=== PATIENT | male | born 1950 | race Caucasian/White ===

== ENCOUNTER → 2019-02-04 19:05 | Outpatient (REF) | payer MEDICARE, OTHER, SELFPAY ==
[2019-02-04 19:25] LABS: Add Manual Diff / Slide Review NO; Alanine Aminotransferase 34 IU/L (21-72); Albumin 4.2 g/dL (3.5-5.0); Albumin Globulin Ratio 1.5 (1.0-2.8); Alkaline Phosphatase 87 U/L (38-126); Aspartate Aminotransferase 21 IU/L (17-59); BUN Creatinine Ratio 17.8 (6-22); Basophils Absolute Auto 100 /uL (0-100); Basophils Percent Auto 0.7 % (0-2); Bilirubin Total 1.2 mg/dL (0.2-1.3); Blood Urea Nitrogen 16 mg/dL (9-20); Carbon Dioxide 28 mmol/L (22-32); Chloride 101 mmol/L (98-107); Cholesterol 156 mg/dL (140-199); Eosinophils Absolute Auto 200 /uL (0-450); Eosinophils Percent Auto 2.7 % (2-4); Estimated Glomerular Filt Rate > 60.0 mL/min (>60); Globulin 2.8 g/dL (1.7-4.1); Glucose 101 mg/dL (80-110); HDL Cholesterol 40 mg/dL (40-60); HEMOLYSIS < 15 (0-50); Hematocrit 39.5 % (41-53); Hemoglobin 12.5 g/dL (13.5-17.5); LDL Cholesterol Calculated 91 mg/dL (<100); Lymphocytes Absolute Auto 1400 /uL (1100-4500); Lymphocytes Percent Auto 17.4 % (25-40); Mean Corpuscular HGB Conc 31.5 % (30-36); Mean Corpuscular Volume 66.7 fL (80-100); Monocytes Absolute Auto 600 /uL (0-900); Monocytes Percent Auto 7.9 % (3-14); Neutrophils Absolute Auto 5700 /uL (1500-7000); Neutrophils Percent Auto 71.3 % (50-75); Platelet Count 171 X10^3/uL (150-400); Red Blood Cell Count 5.92 X10^6/uL (4.5-5.9); Red Cell Distribution Width 16.7 % (11.6-14.8); Sodium 138 mmol/L (137-145); Triglycerides 125 mg/dL (35-150)
[2019-02-04 19:56] LABS: Prostate Specific Antigen 1.84 ng/mL (0.10-4.00)
[2019-02-04 20:21] LABS: Microcytosis 2+; Target Cells 1+
== END ==
LOC: LAB 19:05
PROVIDERS: Family Provider Family Medicine Geriatric Medicine; PCP Family Medicine Geriatric Medicine; Visit Provider Family Medicine Geriatric Medicine
DX: I10 Essential (primary) hypertension (principal); Z13.220 Encounter for screening for lipoid disorders; Z00.00 Encounter for general adult medical examination without abnormal findings; Z12.5 Encounter for screening for malignant neoplasm of prostate
CPT/HCPCS: 36415; 80053; 80061; 84153; 85025; 86900; 86901

== ENCOUNTER → 2019-03-18 12:41 | Outpatient (CLI) | payer MEDICARE, OTHER, SELFPAY ==
[2019-03-18 14:44] LABS: BUN Creatinine Ratio 21.1 (6-22); Blood Urea Nitrogen 19 mg/dL (9-20); Calcium 9.4 mg/dL (8.4-10.2); Carbon Dioxide 26 mmol/L (22-32); Chloride 100 mmol/L (98-107); Estimated Glomerular Filt Rate > 60.0 mL/min (>60); Glucose 86 mg/dL (80-110); HEMOLYSIS < 15 (0-50); Potassium 4.3 mmol/L (3.4-5.1); Sodium 137 mmol/L (137-145)
== END ==
PROVIDERS: Family Provider Family Medicine Geriatric Medicine; PCP Family Medicine Geriatric Medicine; Visit Provider Surgery
DX: K61.39 Other ischiorectal abscess (principal)
CPT/HCPCS: 36415; 80048

== ENCOUNTER → 2019-03-28 12:25 | Outpatient (CLI) | payer MEDICARE, OTHER, SELFPAY ==
--- NOTE | 2019-03-28 12:28 | DI.MRI.S_ITS ---
PROCEDURE: MR PELIS WO/W CON INDICATIONS: Suspected ischiorectal abscess TECHNIQUE: Coronal HASTE, sagittal T2 FSE, axial T1 FSE, axial and coronal nonbreath-hold T2 FSE. Axial dynamic VIBE during administration of contrast. Post-contrast axial and coronal VIBE/2-D FLASH with fat saturation from the iliac crests to the symphysis. Optional diffusion weighted imaging and ADC may be performed. COMPARISON: None available. FINDINGS: Image quality: Excellent. Bowel and peritoneum: No pathologic free pelvic fluid. Inferior colon and small bowel loops are normal in caliber. There is colonic diverticulosis without acute diverticulitis. Genitourinary system: Bladder wall is normal in thickness. There is mild nonspecific heterogeneous enlargement of the prostate. Distal ureters are non distended. Nodes and vessels: No pathologic pelvic or inguinal adenopathy by size criteria. Iliac vessels are normal in caliber. Soft tissues: There is a peripherally enhancing loculated left perianal fluid collection within the ischiorectal fat and system with an abscess measuring up to 5.5 x 2.8 x 3.8 cm. There is an associated curvilinear sinus tract extending proximally and medially with probable intersphincteric extension with suspected perianal fistula at approximately the 1:00 position of the internal sphincter. No discrete intersphincteric fluid collection. Bones: Marrow is normal in overall signal. There is mild facet arthropathy in the lower lumbar spine. IMPRESSION: 1. 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 Dictated by: Ankit Holley M.D. on 03/28/2019 at 17:18 Approved by: Ankit Holley M.D. on 03/28/2019 at 17:26
== END ==
PROVIDERS: Family Provider Family Medicine Geriatric Medicine; PCP Family Medicine Geriatric Medicine; Visit Provider Surgery
DX: K61.39 Other ischiorectal abscess (principal)
CPT/HCPCS: 72197; A9579

== ENCOUNTER 2019-04-16 12:03 | Day surgery (SDC) | payer MEDICARE, OTHER, SELFPAY ==
[2019-04-08 12:25] VITALS: BMI 27.1
[2019-04-16] VITALS (9 sets, daily range): BP systolic 105–143; BP diastolic 57–81; PULSE 51–66; RESP 8–19; TEMP 36.8; O2SAT 96–98; BMI 27.1
[2019-04-16] MEDS: LACTATED RINGERS 1,000 ML 42 ML IV (12:48)
[2019-04-16] MEDS: CEFTRIAXONE 2 GM/50 ML FROZ.PIGGY IV (13:40)
[2019-04-16] MEDS: metroNIDAZOLE 500 MG/100 ML PIGGYBACK 100 MG IV (13:50)
[2019-04-16] MEDS: BUPIVACAINE 0.25% W/ EPI 30 ML VIAL INJ (14:15)
[2019-04-16] MEDS: LIDOCAINE JELLY 2% 30 ML TOP (14:43)
--- NOTE | 2019-04-16 14:59 | SUR.PHASEI ---
Coughing, clearing throat, not responsive to voice. Surgeon checked on patient. Rssp unlabored, skin warm and dry.
--- NOTE | 2019-04-16 15:11 | P.OP_ITS ---
Operative Date/Time/Diagnoses Date of procedure: 04/16/19 Time of procedure: 14:58 Pre-op diagnosis: Ischiorectal abscess on the Left side Post-op diagnosis: other (1. Left ischial rectal abscess 2. 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 Moderately large left Ischiorectal abscess 2. 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 Grade 3 left lateral hemorrhoid Closure Type: non-primary Specimen(s): other (Culture swabs obtained) Estimated Blood Loss (mL): 5 Procedure in detail: Patient was brought to the operating room, he was intubated without incident, he was placed in prone yenny-knife position he was prepped and draped in the usual sterile fashion time-out was completed. An initial a digital rectal exam was performed which did not identify any anal canal or anal margin masses. There was significant fullness in the left ischiorectal fossa consistent with known abscess cavity. A a length of gauze was placed into the anal canal and slowly withdrawn. There was mild prolapse of the left lateral hemorrhoidal column. A Mann retractor was placed inside the anus and the abscess cavity was compressed forcefully no purulent material was seen to drain from anywhere within the canal -however with moving the abscess cavity there was a small punctate area of anal derm that was pitted -that moved with one-to-one motion with manipulation and traction on the abscess cavity. I was highly suspicious that this constituted a fistulous tract with some degree of maturation. A large diameter lacrimal duct probe #4 was used to gently probe the area. The large d iameter was utilized so as to not create a false tract. This popped into a tract with minimal effort past easily laterally towards the abscess cavity. At this point the intersphincteric groove was clearly identified and just lateral to this the external anal sphincter muscles. Overlying the fluctuance of the underlying abscess of the left anterior aspect of the anoderm and just lateral to the external anal sphincter muscles a 2 cm curvilinear circum anal incision was carried through the dermis into the subcutaneous tissue until the abscess cavity was encountered. There was a small cox of light purulence material. The abscess cavity was very minimally entered. A angio catheter was introduced into the abscess cavity and hydrogen peroxide was injected. This gave a distinct bubbling inside the anal canal at the site of the lacrimal duct probe. Bubbles were seen at no other areas. The incision was enlarged to widely drain the abscess cavity and a small ellipse of skin was taken. Cultures were obtained in the cavity was washed out copiously hemostasis and the skin was obtain. Given the size of the cavity and the presence of the fistula in ANO I made the decision to place a draining seton. This was further informed by the patient's mild incontinence. I noted that the fistulous track was just distal to the dentate line and that involved a bit more than a 3rd of the exter nal sphincter. At this point a right angle clamp was used to grasp the tip of the lacrimal duct probe and directed it through the fistula into the anal canal was used to grasp a vessel loop which was brought through the fistulous tract and out through the drainage opening. It was secured to itself loosely with a total of 3 0 -silk ties. The perirectal block was performed with 30 mL of 0.25% bupivacaine. Lidocaine jelly was applied to the anus. Patient was extubated read to PACU without incident Complications: none Condition: stable Disposition: PACU Plan for aftercare: home
[2019-04-16] MEDS: HYDROCODONE/ACET 5/325 TABLET 1 TAB PO (15:17)
[2019-04-16] MEDS: ONDANSETRON 4 MG/2 ML INJ IV (15:38)
== END 2019-04-16 16:49 | disposition home or self-care (01) ==
PROVIDERS: PCP Family Medicine Geriatric Medicine; Visit Provider Surgery
PROC: (CPT 46040; principal; 2019-04-16 13:15)
DX: K61.39 Other ischiorectal abscess (principal); K64.2 Third degree hemorrhoids; I25.10 Atherosclerotic heart disease of native coronary artery without angina pectoris; I25.2 Old myocardial infarction
CPT/HCPCS: 46020; 87070; 87075; 87077; 87186; 87205; J0330; J0696; J1100; J2405; J2704; J3010

== ENCOUNTER 2019-07-16 13:04 | Day surgery (SDC) | payer MEDICARE, OTHER, SELFPAY ==
[2019-07-10 08:40] VITALS: BMI 27.1
[2019-07-16] VITALS (12 sets, daily range): BP systolic 109–199; BP diastolic 59–88; PULSE 56–72; RESP 8–20; TEMP 36.2–36.4; O2SAT 64–98; BMI 26.9
[2019-07-16] MEDS: LACTATED RINGERS 1,000 ML 42 ML IV ×2 (13:47→16:40)
--- NOTE | 2019-07-16 14:02 | P.HP_ITS ---
History of Present Illness Date Patient Seen: 07/16/19 Time Patient Seen: 14:02 Chief complaint: [id number] Narrative: Patient seen in exam Unchanged since prior exam in office Plan for lift procedure today Patient History Medical History (Updated 07/15/19 @ 07:39 by Alley Estrella RN) HLD (hyperlipidemia) (Acute) History of torsion of testis (Acute ~1982) Afib (Acute) Beta thalassemia (Acute) CAD (coronary artery disease) (Acute) Compression fracture of L1 vertebra (Acute ~2001) Constipation (Acute) Difficulty swallowing (Acute) GERD (gastroesophageal reflux disease) (Acute) History of left heart catheterization (Acute 06/26/16) Mitral valve prolapse (Acute) Myocardial infarct (Acute 08/25/16) PVC's (premature ventricular contractions) (Acute) Perirectal abscess (Acute) Seasonal allergic reaction (Acute) Stool incontinence (Acute) Surgical History (Updated 07/15/19 @ 07:39 by Alley Estrella RN) Hx of tonsillectomy (Acute) Status post incision and drainage (Acute 04/16/19) History of incision and drainage (Acute) Hx of hemorrhoidectomy (Acute 08/15/17) Normal colonoscopy (Acute ~2010) S/P coronary artery stent placement (Acute 06/26/16) Testicular torsion (Acute ~1984) Family History (Updated 03/18/19 @ 13:08 by Noble Becker MD) Unknown Colon abnormality Social History (Updated 03/18/19 @ 13:10 by Noble Becker MD) household members: spouse Smoking Status: Never smoker alcohol intake: current additional social history: [place] [facility] with . no smoking, infrequent etoh, infrequent THC. [employer] - travels for work Family & Social History Social History: household members spouse Tobacco & Substance use: Smoking Status Never smoker alcohol intake current alcohol intake frequency 0-2 drinks per day Substance Use Type marijuana Meds Home Medications Medication Instructions Recorded Confirmed Type acetaminophen 500 mg PO PRN PRN #0 08/13/17 07/16/19 History aspirin 81 mg PO QDAY #0 08/13/17 07/16/19 History coenzyme Q10 [Co Q-10] 100 mg PO QDAY #0 08/13/17 07/16/19 History loratadine [Claritin Liqui-Gel] 10 mg PO QDAY PRN #0 08/13/17 07/16/19 History nitroglycerin [Nitrostat] 0.4 mg SUBLINGUAL PRN PRN #0 08/13/17 07/15/19 History magnesium 400 mg (as magnesium 300 mg PO DAILY cap 03/18/19 07/16/19 History oxide,aspartate,citrate) capsule simvastatin 20 mg tablet 20 mg PO QPM 03/18/19 07/16/19 History turmeric 1 tab PO DIRECTED 03/18/19 07/15/19 History tadalafil [Cialis] 10 mg PO DAILY PRN #0 04/16/19 07/15/19 History ibuprofen 200 mg PO Q6H PRN 07/15/19 07/16/19 History Allergies Allergy/AdvReac Type Severity Reaction Status Date / Time Penicillins [PENICILLINS] Allergy Unknown RASH only Verified 07/08/19 11:31 atorvastatin [ATORVASTATIN] AdvReac Unknown MUSCLE Verified 07/08/19 11:31 CRAMPS & back pain Exam Vital Signs (past 8 hours): - 07/16/19 13:20 Temperature 97.6 F Pulse Rate 58 L Respiratory Rate 15 Blood Pressure 150/88 H Pulse Oximetry 97 Oxygen Delivery Method Room Air
[2019-07-16] MEDS: metroNIDAZOLE 500 MG/100 ML PIGGYBACK 100 MG IV (14:14)
[2019-07-16] MEDS: CEFTRIAXONE 2 GM/50 ML FROZ.PIGGY IV (14:46)
--- NOTE | 2019-07-16 15:18 | SUR.OPER ---
Prone on padded OR bed on Italo frame, head in foam head support, gel pad under knees, pillow under lower legs, toes free of pressure, arms secured on padded arm boards at <90 degrees abduction.
[2019-07-16] MEDS: BUPIVACAINE 0.25% W/ EPI 30 ML VIAL INJ (15:52)
[2019-07-16] MEDS: DIBUCAINE 1% OINT 28 GM 1 APPLIC TOP (15:53)
[2019-07-16] MEDS: ACETAMINOPHEN IV 1,000 MG/100 ML VIAL 400 MG IV (16:40)
--- NOTE | 2019-07-16 17:02 | PM.OP.1 ---
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 Due to mild underlying incontinence and involvement of a large portion/easily greater 1 then 1/3 of the external anal sphincter the decision was made not to perform a fistulotomy and rather place a draining seton. The draining seton utilizing a red rubber vessel loop has now been in place for just over 2 months. Patient would like this removed. Again given the underlying incontinence/large amount of external anal sphincter involvement decision was made to perform a sphincter sparing LIFT Surgeon: Noble Becker Physical Sciences Instructor: Gama Esparza Click Yes if Unassisted: No Anesthesia Type: General Operative Notes Findings: Mature transsphincteric fistula on the left side Closure Type: primary Specimen(s): none sent Estimated Blood Loss (mL): 5 Procedure in detail: Patient was taken to the operating room he is intubated without incident he was placed in the prone yenny-knife position. A time-out was completed. Initial rectal exam was performed this demonstrated the known external left lateral hernia. His draining seton continue to be well placed within the anterior aspect of the left side. There are no additional lesions identified. The previously present left ischiorectal space abscess was fully resolved. Great care was then taken to identified the intersphincteric groove in the vicinity of the fistulous tract -this was marked. The draining seton was then cut and exchanged for a stiff urethral catheter to promote identification during the dissection. A curvilinear incision was then made approximately 2 mm lateral to the intersphincteric 3 groove caring it through the dermis and subcutaneous tissues, readily the fibers of the external anal sphincter were identified -the plane of dissection was carried just medial to this entering into the intersphincteric groove. To facilitate retraction a [place] retractor was used. Carefully and meticulously following the intersphincteric plane the dissection advanced until it was in the vicinity of the transsphincteric fistula. This was easily identified by palpation. The fistulous track was then bluntly dissected out from the adjacent tissue using primarily Kitt[place]. Once well skeletonized a right angle was used to develop a generous window just deep to the fistulous tract. 3-0 PDS was utilized to suture ligate the most medial and lateral aspects of the tract. These were snapped. The urethral catheter was then cut and withdrawn from the fistula tract. The PDS suture were then tied snugly. A small segment perhaps 2-3 mm of the fistulous tract within intersphincteric space was then excised this was between the 2 ligations. The more lateral ligation in the course of this slipped off. The fistulous tract though was grasped and held with a clamp -and a stick tie was utilized to religate. Horizontal mattress suture of 3 0 PDS was then used to imbricate each side of the divided fistulous tract. At this point the fistulous tract external opening was probed and copiously curetted to the level of the ligation. The involved skin was then cored out as well living a 1 x 1 cm wound to allow a external drainage. Next both wounds were copiously irrigated . Using several interrupted 2 0 Vicryl sutures the internal and and external anal sphincters were then reapproximated to each other. Skin was closed using a total of 3 loosely tied Monocryl sutures to allow is some drainage. Using 30 mL 0.25% bupivacaine with epinephrine in a perianal block was placed Patient was extubated and brought to PACU without incident Complications: none Condition: stable Disposition: PACU Plan for aftercare: Home follow up in clinic
[2019-07-16] MEDS: OXYCODONE IR 5 MG TABLET PO (17:39)
--- NOTE | 2019-07-16 18:02 | SUR.PHASEI ---
1759 Report given to Paula Hess RN, transferred to phase II. Pain level improving, patient states I'm doing better. No nausea.
== END 2019-07-16 18:30 | disposition home or self-care (01) ==
PROVIDERS: PCP Family Medicine Geriatric Medicine; Visit Provider Surgery
PROC: (CPT 46285; principal; 2019-07-16 14:45)
DX: K60.3 Anal fistula (principal); I25.10 Atherosclerotic heart disease of native coronary artery without angina pectoris; I25.2 Old myocardial infarction; I48.91 Unspecified atrial fibrillation; I34.1 Nonrheumatic mitral (valve) prolapse; D56.1 Beta thalassemia; E78.5 Hyperlipidemia, unspecified; K21.9 Gastro-esophageal reflux disease without esophagitis; Z95.5 Presence of coronary angioplasty implant and graft
CPT/HCPCS: 46285; J0131; J0330; J0696; J1100; J2250; J2405; J2704; J3010